=== PATIENT | male | born 1955 | race Caucasian/White ===

== ENCOUNTER → 2023-12-08 10:00 | Outpatient (REF) | payer MEDICARE, OTHER, SELFPAY | LOC: RAD 10:00 | PROVIDERS: ATTENDING PHYSICIAN Internal Medicine | DX: R55 Syncope and collapse (principal); R47.01 Aphasia | CPT/HCPCS: 93225; 93226 ==

== ENCOUNTER → 2024-01-07 07:56 | Outpatient (REF) | payer MEDICARE, OTHER, SELFPAY | LOC: RCS 07:56 | PROVIDERS: ATTENDING PHYSICIAN Nurse Practitioner; FAMILY PHYSICIAN Nurse Practitioner Adult Health | DX: R55 Syncope and collapse (principal) | CPT/HCPCS: 93306 ==

== ENCOUNTER 2024-12-31 06:28 | Day surgery (SDC) | payer MEDICARE, OTHER, SELFPAY | END 2024-12-31 09:36 | disposition home or self-care (01) | LOC: GI 06:28 | PROVIDERS: ATTENDING PHYSICIAN Internal Medicine Gastroenterology | DX: Z12.11 Encounter for screening for malignant neoplasm of colon (principal); D12.0 Benign neoplasm of cecum; D12.3 Benign neoplasm of transverse colon; D12.7 Benign neoplasm of rectosigmoid junction; K57.30 Diverticulosis of large intestine without perforation or abscess without bleeding; D12.8 Benign neoplasm of rectum; K64.8 Other hemorrhoids; Z86.0101 Personal history of adenomatous and serrated colon polyps | CPT/HCPCS: 45385; 45380; 88305 ==

== ENCOUNTER → 2025-03-24 10:34 | Outpatient (REF) | payer MEDICARE, OTHER, SELFPAY | LOC: HWRAD 10:34 | PROVIDERS: ATTENDING PHYSICIAN Nurse Practitioner Adult Health | DX: M25.562 Pain in left knee (principal) | CPT/HCPCS: 73564 ==

== ENCOUNTER 2025-06-08 15:09 | Emergency (ER) | payer MEDICARE, OTHER, SELFPAY ==
[2025-06-08 15:15] VITALS: BP 156/71
[2025-06-08 16:03] LABS: Hematocrit 37.6 % (39.0-52.0); Hemoglobin 12.8 g/dL (13.0-18.0); Mean Corp Hgb Conc. 34.0 g/dL (33.0-37.0); Mean Corpuscular Volume 93.3 fL (80.0-94.0); Nucleated Red Blood Cells % 0 % (-); Platelet Count 152 10^3/uL (130-400); Red Cell Dist. Width 12.5 % (11.5-14.5)
[2025-06-08 16:15] LABS: ALT (SGPT) 20 U/L (0-50); AST (SGOT) 22 U/L (17-59); Albumin 4.5 g/dl (3.5-5.0); Alkaline Phosphatase 40 U/L (38-126); Blood Urea Nitrogen 18 mg/dl (9-20); Calcium 9.7 mg/dl (8.4-10.2); Carbon Dioxide 30 mmol/L (22-30); Chloride 103 mmol/L (98-107); Glucose 152 mg/dl (70-99); Potassium 4.6 mmol/L (3.5-5.1); Sodium 135 mmol/L (135-145); Total Protein 7.1 g/dl (6.3-8.2); eGFR > 60.00
--- NOTE | 2025-06-08 16:15 | ED.GENMED ---
History of Present Illness
General
Chief Complaint: Fainting/Passed Out
Time Seen by Provider: 06/08/25 16:15
History of Present Illness
History of Present Illness:
FOCUSED PAST MEDICAL HISTORY
- Hyperlipidemia
REVIEW OF OLD RECORDS
- The patient had a Holter monitor 12/08/[address] Waller which showed rare ectopy and no other significant finding
- Echo 2023 showed normal EF and no significant valve abnormality.
Note:
CHIEF COMPLAINT(S)
Feeling of intense heat, faintness, and an episode of possible syncope.
HISTORY OF PRESENT ILLNESS
The patient is a 70-year-old male who stated he started feeling 'really hot' unexpectedly while indoors in comfortable surroundings. This event was similar to an episode he experienced a few years ago on a flight to [place], approximately two to
three hours into the flight, during which he felt overheated potentially due to dehydration.
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 This was not related to anxiety, as he indicated no nervousness and no chest pain or pressure typically associated with
cardiac events. He described the feeling as similar to indigestion, though he had no recent tightness or pressure.
Today, during the event at the ophthalmologists office, he appeared faint to an observer and seemed to lose control, with eyes rolling back and jaw becoming tight. The episode was noted as 'very scary' by an observer but resolved within a couple of
minutes.
PAST MEDICAL AND SURGICAL HISTORY
The patient has had prior cardiac monitoring without abnormalities.
EXTERNAL RECORDS REVIEWED
Previous emergency room records were reviewed, including an electrocardiogram (EKG) from three weeks prior that indicated a normal sinus rhythm.
CHRONIC MEDICAL CONDITIONS SIGNIFICANTLY AFFECTING CARE
The patient has a history of experiencing heat-related episodes potentially exacerbated by dehydration.
REVIEW OF SYSTEMS
- Cardiovascular: No chest pain, pressure, or palpitations during the current episode.
- Neurological: Experienced significant dizziness and a loss of control appearance but no long-term deficits observed.
- Gastrointestinal: Temporary sensation of indigestion but no significant gastrointestinal complaints.
- General: Sensation of intense heat followed by fainting episode.
PHYSICAL EXAM
General: Alert, oriented, cooperative, no acute distress. Very well-appearing, healthy appearing.
Skin: Warm, dry.
Head: Normocephalic, atraumatic.
Neck: Supple, trachea midline.
Eye Ears, nose, mouth and throat: Oral mucosa moist.
Cardiovascular: Normal peripheral perfusion, no edema. No murmurs.
Respiratory: Respirations are non-labored.
Gastrointestinal: Abdomen nondistended.
Back: Normal range of motion, normal alignment.
Musculoskeletal: Strength appears intact upon informal testing, normal range of motion.
Neurological: Alert and oriented to person, place, time, and situation, no focal neurological deficit observed.
Psychiatric: Cooperative, appropriate mood and affect.
PROBLEM LIST
Acute:
- Episodic sensation of intense heat and faintness
- Possible syncope
PLAN
The patient was given intravenous fluids as a precautionary measure for possible dehydration. Continued monitoring is recommended to rule out cardiac issues as a contributory factor. A review of additional records from the past year and a half will
be conducted for any significant findings. Consider further cardiac evaluation if episodes persist or worsen.
DIFFERENTIAL DIAGNOSIS
The Differential Diagnosis includes, in no particular order and is not limited to:
1. Vasovagal syncope
2. Dehydration
3. Cardiac arrhythmias
4. Orthostatic hypotension
5. Transient ischemic attack
6. Anxiety-related episodes
7. Electrolyte imbalance
8. Medication side effects
9. Heat intolerance
10. Hyperthyroidism
EKG
- Sinus 59, normal axis, nonspecific ST abnormality
LABS
- White count normal, hemoglobin 12.8, chemistries unremarkable, troponin less than 0.012
UPDATE
-SUMMARY OF ENCOUNTER
The patient, a 70-year-old male, presented to the emergency department with an episode of feeling intensely hot and faint, similar to a previous event experienced a few years ago. 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 The patient has a history of cardiac monitoring with no abnormal findings and previously underwent a Holter monitor study, which showed some extra beats but no significant abnormalities. In the emergency department, the patients vital
signs and blood work returned normal results. It was decided to administer intravenous fluids to address possible dehydration and to monitor the patient for a short duration to rule out immediate complications.
DISPOSITION
Discharge
ASSESSMENT
The patient experienced an episode of intense heat sensation and possible syncope, likely related to dehydration. No cardiac abnormalities were noted on prior testing, and current evaluation showed stable vital signs and normal blood work.
EMERGENCY TREATMENTS ADMINISTERED
Intravenous fluids were administered to address potential dehydration.
PLAN
The patient will be monitored for a brief period while receiving intravenous fluids and subsequently discharged with instructions to follow up with a pediatric critical care nurse. Given the normal findings, no immediate cardiac concerns are noted.
INDEPENDENT REVIEW OF LABS AND INTERPRETATION OF TESTS
My independent review indicates that all blood work results returned within normal limits, consistent with no acute abnormalities.
MEDICATION RECONCILIATION
Intravenous fluid (type not specified) administered during the visit.
MEDICAL DECISION MAKING
-Number and Complexity of Problems Addressed: Chronic conditions affecting care include a history of heat-related episodes and dehydration. Differential diagnosis considered includes vasovagal syncope, dehydration, cardiac arrhythmias, orthostatic
hypotension, transient ischemic attack, anxiety-related episodes, electrolyte imbalance, medication side effects, heat intolerance, and hyperthyroidism.
-Data:
Category 1: Non-emergency department records reviewed include previous cardiac monitoring records, including a Holter monitor study which showed no significant valve abnormalities or rhythm issues.
Category 2: My independent review of prior cardiac evaluations confirmed normal function and no significant findings.
-Risk: Prescription medication was not prescribed. Consideration of Admission/Observation: Escalation of care including admission/observation was considered given the complexity and risk of the patients presenting complaint, exam findings, and/or
their underlying comorbidities. However, ultimately I feel the patient is safe for outpatient management with close follow-up. Reasoning: Work-up is reassuring, does not reveal any acute life/organ-threatening processes, patients symptoms well
controlled upon reevaluation, reexamination is reassuring, vitals are stable, patient agreeable with discharge, reliable for follow-up.
DIAGNOSIS
Possible syncope, dehydration (ICD-10: R55, E86.0)
The patient is well-appearing. He has remained sinus on the monitor. He was given IV fluids as he did bring up the possibility of dehydration.
Past History
Past History
ED Past Medical History: Hypercholesterolemia
Social History
Tobacco: Non-smoker
Alcohol: Occasional
Personal:
Employment: Retired
Phy Exam
Physical Exam
Physical Exam:
See HPI
Course
Orders/Labs/Results
Orders:
Orders
06/08/25 15:10
EKG [Electrocardiogram (*1)] Urgent
Reason for Study: Vertigo / Dizzy
EKG- Treatment ONCE
06/08/25 15:26
Complete Blood Count/With Diff Urgent
Comprehensive Metabolic Panel Urgent
Troponin I Urgent
06/08/25 16:29
0.9% Sodium Chloride 1000 ml [Nss] 1,000 ml IV BOLUS
Abnormal Lab Results
06/08/25
15:26
RBC 4.03 L 10^6/uL
(4.70-6.10)
Hgb 12.8 L g/dL
(13.0-18.0)
Hct 37.6 L %
(39.0-52.0)
MCH 31.8 H pg
(27.0-31.0)
Glucose 152 H mg/dl
(70-99)
06/08/25 15:26
06/08/25 15:26
Vital Signs
Initial and Last Documented VS:
Initial Vital Signs
Pulse Resp BP Pulse Ox
71 20 156/71 98
06/08/25 15:15 06/08/25 15:15 06/08/25 15:15 06/08/25 15:15
Last Documented Vital Signs
Temp Pulse Resp BP Pulse Ox
36.9 C 56 16 104/67 100
06/08/25 15:30 06/08/25 17:45 06/08/25 17:45 06/08/25 17:00 06/08/25 17:45
*Pulse Oximetry
SaO2: 98
Oxygen Mode of Delivery: Room air
Patient hypoxic: no
*Critical Care Note
Total Time (30-74mins, 75-104mins- exclusive of procedures): Not Applicable
ED Attending Note
-
Portions of this chart may have been created with voice recognition software.� Occasional wrong word or��sound alike� substitutions may have occurred due to the inherent limitations of voice recognition software.
Discharge Plan
Departure
Patient Disposition: Home (Routine Discharge)
Date of Disposition: 06/08/25
Time of Disposition: 17:53
Patient with high blood pressure during this ER visit?: Yes
Discharge Problem:
Near syncope
Instructions: Syncope (Fainting) (DC), BLOOD PRESSURE
Prescriptions:
No Action
ascorbic acid (vitamin C) [Vitamin C] 500 MG tablet
1,000 mg PO BID
rosuvastatin 20 MG tablet
PO DAILY
Patient Comments:
10 or 20 mg; pt unsure.
multivitamin [One Daily Multivitamin] 1 EACH powder in packet
1 ea PO DAILY
Zinc
1 tab PO DAILY
Referrals:
Les Leger MD [Active, Cardiology]
Teresita Peñaloza CRNP [Family Provider, Internal Medicine]
Activity Restrictions/Additional Instructions:
Basic blood work is unremarkable. EKG shows a normal sinus rhythm. Follow-up with Dr. Leger as well as with your primary care doctor. Return if worse or other concerns.
Interventions
Interventions:
*Risk Screen - Suicide Last Done: 06/08/25 16:30
*General Assessment Last Done: 06/08/25 15:15
*Neglect/Abuse Screening Last Done: 06/08/25 16:30
*Nursing Disposition Last Done: 06/08/25 18:01
ED- Cardiac Assessment Last Done: 06/08/25 16:30
ED- Neurological Assessment Last Done: 06/08/25 16:30
Discharge Date and Time
Discharge Date/Time: 06/08/25 18:01
Print Language: LEBANESE
[2025-06-08 16:24] LABS: Troponin I < 0.012 ng/ml
[2025-06-08 16:43] VITALS: BP 113/70
[2025-06-08] MEDS: NSS 1000 IV (16:46)
[2025-06-08 17:00] VITALS: BP 104/67
== END 2025-06-08 18:01 | disposition home or self-care (01) ==
LOC: EMR 15:09
PROVIDERS: Emergency Medicine; EMERGENCY PHYSICIAN Emergency Medicine; FAMILY PHYSICIAN Nurse Practitioner Adult Health
DX: R55 Syncope and collapse (principal); E78.00 Pure hypercholesterolemia, unspecified
CPT/HCPCS: 99283; 80053; 84484; 85025; 93005

== ENCOUNTER → 2025-06-20 08:30 | Outpatient (REF) | payer MEDICARE, OTHER, SELFPAY | LOC: PAVMRI 08:30 | PROVIDERS: ATTENDING PHYSICIAN Nurse Practitioner Adult Health | DX: R55 Syncope and collapse (principal); R51.9 Headache, unspecified | CPT/HCPCS: 70551 ==